=== PATIENT | male | born 1970 | race Caucasian/White ===

== ENCOUNTER 2016-06-12 08:46 | Emergency (ER) | payer BC ==
[~2016-06-12] VITALS: Ht 175.3 cm; Wt 105.8 kg
[~2016-06-12 08:46] MED LIST: CLR10 PO; EPP3/2 IM; OMEP40CA PO; SERT50TA PO; ZNTT/150 PO
[2016-06-12 08:50] VITALS: TEMP 36.6; Ht 175.3 cm; Wt 105.8 kg
--- NOTE | 2016-06-12 09:06 | EMERGENCY ROOM VISIT NOTE ---
History Report prepared by [place]: Fransisco Juan Under the Supervision of: Dr. Alfredo Morales M.D. First contact with patient: 08:58 Chief Complaint: HYPERTENSION Stated Complaint: BLURRY VISION, ELEVATED BP History of Present Illness The patient is a 46 year old male who presents to the Emergency Room with complaints of an episode of blurry vision that occurred around 0830 this morning. The patient says the blurry vision persisted for 15 minutes. 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 He says the blurriness was worse in his left eye than his right. He was concerned due to the persistence of his symptoms. The patient has been working since 0330 this morning, and he has not eaten since last night. He has been drinking appropriately. The patient denies any pain, headache, dizziness, loss of consciousness, weakness, numbness, tingling, or recent falls or trauma. He says he was just doing his normal routes this morning, with no unusual exposure. The patient drinks occasional alcohol, and does not use any drugs. He has had hematuria in the past, which he has followed up with his urologist about. The patient has been concerned about hypertension. He does see an eye doctor regularly. Source of History: patient Onset: Around 0830 this morning Position: eye Quality: other (blurry vision, left worse than right) Timing: other (episode) Associated Symptoms: No LOC, No headache, No numbness, No weakness Note: Associated symptoms: Denies any pain, dizziness, tingling. Review of Systems See HPI for pertinent positives & negatives. A total of 10 systems reviewed and were otherwise negative. Past Medical & Surgical Medical Problems: (1) Hematuria Surgical Problems: (1) H/O vasectomy Family History Cancer Heart disease Lung disease Social History Smoking Status: Never Smoker Alcohol Use: occasionally Drug Use: none Occupation Status: employed Current/Historical Medications Scheduled Omeprazole (Prilosec), 20 MG PO DAILY Sertraline (Zoloft), 50 MG PO DAILY Scheduled PRN Epinephrine (Epipen), 0.3 MG IM UD PRN for ALLERGIC REACTION Allergies Coded Allergies: Shellfish Allergy (Verified Allergy, Severe, ANAPHYLAXIS, 06/12/16) PT HAS EPI PEN Succinylcholine (Verified Allergy, Severe, MALIGNANT HYPERTHERMIA, 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 PT'S SISTER DOES HAVE MH. POLLEN (Verified Allergy, Unknown, SEASONAL ALLERGIES, 06/12/16) Physical Exam Vital Signs Date Time Temp Pulse Resp B/P Pulse Ox O2 Delivery O2 Flow Rate FiO2 06/12/16 11:17 81 18 137/89 96 06/12/16 10:48 95 Room Air 06/12/16 10:48 81 18 137/89 96 Room Air 06/12/16 08:50 36.6 88 18 135/95 97 Room Air Physical Exam GENERAL: Patient is a healthy-appearing well-nourished HEAD: Normocephalic atraumatic EYES: Ocular movements intact pupils equal and react to light OROPHARYNX mucous membranes are moist no exudates present no erythema or edema present NECK: Supple no nuchal rigidity CHEST: Good equal expansion LUNGS: Clear and equal to auscultation CARDIAC: Normal S1 and S2 ABDOMEN: Soft nontender no guarding BACK: No CVA tenderness EXTREMITIES: No pain upon palpation normal muscle strength in all groups no clubbing cyanosis or edema NEURO: Patient is following commands is answering questions appropriately. Alert and oriented x3 Cranial Nerves 2-12 grossly intact Medical Decision & Procedures ER Provider Diagnostic Interpretation: X-ray results as stated below per my interpretation and radiologist interpretation. Other radiology results as stated below per my review and radiologist interpretation: HEAD CT NONCONTRAST CT DOSE: 537.48 mGy.cm HISTORY: Blurry vision. Stroke TECHNIQUE: Multiaxial CT images of the head were performed without the use of intravenous contrast. Automated exposure control was utilized for this study. Comparison: None. Findings: Small amount secretions within the left maxillary sinus which is partially visualized. The remaining paranasal sinuses and left mastoid air cells are clear. A few partially opacified right inferior mastoid air cells. The calvarium and skull base are intact. The ventricles and sulci are within normal limits. There is no mass, hematoma, midline shift, or acute infarct. Impression: No acute intracranial abnormality. Electronically signed by: Howard Alcaraz M.D. 06/12/2016 9:58 AM Dictated Date/Time: 06/12/2016 9:43 AM CHEST ONE VIEW PORTABLE HISTORY: Blurred vision. Stroke COMPARISON: 11/29/2006. FINDINGS: Small amount of increased density within the right lung apex is likely due to the overlapping right anterior first rib. Otherwise, lungs are clear. No pleural effusions. No pneumothorax. The heart is normal in size. IMPRESSION: No acute process. Electronically signed by: Howard Alcaraz M.D. 06/12/2016 10:23 AM Dictated Date/Time: 06/12/2016 10:21 AM Laboratory Results 06/12/16 09:25 Red Blood Count 5.00, Mean Corpuscular Volume 91.4, Mean Corpuscular Hemoglobin 33.6, Mean Corpuscular Hemoglobin Concent 36.8, Mean Platelet Volume 9.6, Neutrophils (%) (Auto) 51.9, Lymphocytes (%) (Auto) 37.1, Monocytes (%) (Auto) 5.7, Eosinophils (%) (Auto) 4.9, Basophils (%) (Auto) 0.2, Neutrophils # (Auto) 3.37, Lymphocytes # (Auto) 2.41, Monocytes # (Auto) 0.37, Eosinophils # (Auto) 0.32, Basophils # (Auto) 0.01 06/12/16 09:25 Test 06/12/16 09:24 06/12/16 09:25 06/12/16 09:28 06/12/16 10:40 Bedside Glucose 88 mg/dl (70-99) White Blood Count 6.49 K/uL (4.8-10.8) Red Blood Count 5.00 M/uL (4.7-6.1) Hemoglobin 16.8 g/dL (14.0-18.0) Hematocrit 45.7 % (42-52) Mean Corpuscular Volume 91.4 fL (80-100) Mean Corpuscular Hemoglobin 33.6 pg (25-34) Mean Corpuscular Hemoglobin Concent 36.8 g/dl (32-36) Platelet Count 279 K/uL (130-400) Mean Platelet Volume 9.6 fL (7.4-10.4) Neutrophils (%) (Auto) 51.9 % Lymphocytes (%) (Auto) 37.1 % Monocytes (%) (Auto) 5.7 % Eosinophils (%) (Auto) 4.9 % Basophils (%) (Auto) 0.2 % Neutrophils # (Auto) 3.37 K/uL (1.4-6.5) Lymphocytes # (Auto) 2.41 K/uL (1.2-3.4) Monocytes # (Auto) 0.37 K/uL (0.11-0.59) Eosinophils # (Auto) 0.32 K/uL (0-0.5) Basophils # (Auto) 0.01 K/uL (0-0.2) RDW Standard Deviation 42.8 fL (36.4-46.3) RDW Coefficient of Variation 12.8 % (11.5-14.5) Immature Granulocyte % (Auto) 0.2 % Immature Granulocyte # (Auto) 0.01 K/uL (0.00-0.02) Prothrombin Time 10.7 SECONDS (9.0-12.0) Prothromb Time International Ratio 1.0 (0.9-1.1) Activated Partial Thromboplast Time 30.1 SECONDS (21.0-31.0) Partial Thromboplastin Ratio 1.2 Anion Gap 8.0 mmol/L (3-11) Est Creatinine Clear Calc Drug Dose 111.8 ml/min Estimated GFR () 104.9 Estimated GFR (Non- 90.5 BUN/Creatinine Ratio 13.8 (10-20) Calcium Level 9.1 mg/dl (8.5-10.1) Total Creatine Kinase 325 U/L (39-308) Creatine Kinase MB 3.0 ng/ml (0.5-3.6) Creatine Kinase MB Ratio 0.9 (0-3.0) Troponin I < 0.015 ng/ml (0-0.045) Bedside Prothrombin Time INR 1.0 (0.9-1.1) Urine Opiates Screen NEG (NEG) Urine Methadone, Qualitative NEG (NEG) Urine Barbiturates NEG (NEG) Urine Phencyclidine (PCP) Level NEG (NEG) Ur Amphetamine/Methamphetamine NEG (NEG) MDMA (Ecstasy) Screen NEG (NEG) Urine Benzodiazepines Screen NEG (NEG) Urine Cocaine Metabolite NEG (NEG) Urine Marijuana (THC) NEG (NEG) Labs reviewed by ED physician. Medications Administered Medications (Trade) Dose Ordered Sig/Kenny Route Start Time Stop Time Status Last Admin Dose Admin Aspirin (Aspirin Chew) 324 mg NOW STAT PO 06/12/16 10:31 06/12/16 10:32 DC 06/12/16 10:55 324 MG ECG Indication: other (blurry vision) Rate (beats per minute): 78 Rhythm: normal sinus Findings: no acute ischemic change, no ectopy ED Course 0915: Past medical records reviewed. The patient was evaluated in room A3. A complete history and physical examination was performed. 0917: Ordered NSS 1000 ml @ 50 mls/hr IV. 103: Ordered Aspirin Chew 324 mg PO. 1035: I reevaluated the patient and he is resting comfortably. The patient verbally expressed understanding and agreement of the treatment plan. The patient will be discharged. Medical Decision Differential diagnosis: Etiologies such as metabolic, infection, hypo/hyperglycemia, electrolyte abnormalities, cardiac sources, intracerebral event, toxicologic, neurologic, as well as others were entertained. This is a 46-year-old male who presents emergency Department with sudden onset of blurry vision in his left eye today. The situation resolved after proximally 2 minutes. The patient describes it as painless. He is slightly hypertensive. For this reason the decision was made to do his full stroke workup on the patient. He has a normal CAT scan ahead normal CBC normal renal profile normal liver profile. He was given 324 of aspirin in the emergency department. I did advise the patient to start 81 mg of aspirin at home pending follow-up with his primary care physician. Patient and family were in agreement with the treatment plan. Impression Primary Impression: Hypertension Scribe Attestation The scribe's documentation has been prepared under my direction and personally reviewed by me in its entirety. I confirm that the note above accurately reflects all work, treatment, procedures, and medical decision making performed by me. Departure Information Dispostion Home / Self-Care Referrals Mak Calvert M.D. ([facility]) (PCP) Forms HOME CARE DOCUMENTATION FORM, IMPORTANT VISIT INFORMATION, WORK / SCHOOL INSTRUCTIONS Patient Instructions [facility] Additional Instructions Need follow up with DR Calvert's office You have been examined and treated today on an emergency basis only. This is not a substitute for, or an effort to provide, complete comprehensive medical care. It is impossible to recognize and treat all injuries or illnesses in a single emergency department visit. It is therefore important that you follow up closely with Dr Calvert. Call as soon as possible for an appointment. Thank you for your time and consideration. I look forward to speaking with you again soon. Please don't hesitate to call us if you have any questions. Problem Qualifiers Primary Impression: Hypertension Hypertension type: essential hypertension Qualified Codes: I10 - Essential ( primary) hypertension
[2016-06-12] MEDS ORDERED: SODIUM CHLORIDE 0.9% 1000ML 1,000 ML IV SCH (09:17)
[2016-06-12] MEDS ORDERED: PRLSR20 PO (09:26)
[2016-06-12 09:54] LABS: BASO % 0.2 %; BASO ABS # 0.01 K/uL (0-0.2); COMPLETE YES; EOS % 4.9 %; HEMATOCRIT 45.7 % (42-52); IG% 0.2 %; LYMPH % 37.1 %; LYMPH ABS # 2.41 K/uL (1.2-3.4); MEAN CELL VOLUME 91.4 fL (80-100); MEAN CORPUSCULAR HEMOGLOBIN 33.6 pg (25-34); MEAN CORPUSCULAR HGB CONC 36.8 g/dl (32-36); MEAN PLATELET VOLUME 9.6 fL (7.4-10.4); MONO % 5.7 %; NEUT % 51.9 %; PLATELET COUNT 279 K/uL (130-400); WHITE BLOOD COUNT 6.49 K/uL (4.8-10.8)
[2016-06-12 10:00] LABS: BLOOD UREA NITROGEN 14 mg/dl (7-18); BUN/CREATININE RATIO 13.8 (10-20); CALCIUM 9.1 mg/dl (8.5-10.1); CARBON DIOXIDE 25 mmol/L (21-32); CHLORIDE 106 mmol/L (98-107); GLUCOSE 86 mg/dl (70-99); POTASSIUM 4.4 mmol/L (3.5-5.1); SODIUM 139 mmol/L (136-145)
--- NOTE | 2016-06-12 10:00 | DIAGNOSTIC IMAGING REPORT ---
HEAD CT NONCONTRAST CT DOSE: 537.48 mGy.cm HISTORY: Blurry vision. Stroke TECHNIQUE: Multiaxial CT images of the head were performed without the use of intravenous contrast. Automated exposure control was utilized for this study. Comparison: None. Findings: Small amount secretions within the left maxillary sinus which is partially visualized. The remaining paranasal sinuses and left mastoid air cells are clear. A few partially opacified right inferior mastoid air cells. The calvarium and skull base are intact. The ventricles and sulci are within normal limits. There is no mass, hematoma, midline shift, or acute infarct. Impression: No acute intracranial abnormality. Electronically signed by: Howard Alcaraz M.D. 06/12/2016 9:58 AM Dictated Date/Time: 06/12/2016 9:43 AM
[2016-06-12 10:04] LABS: PARTIAL THROMBOPLASTIN RATIO 1.2; PROTHROMBIN TIME (PATIENT) 10.7 SECONDS (9.0-12.0)
[2016-06-12 10:05] LABS: CKMB/CK RATIO 0.9 (0-3.0)
--- NOTE | 2016-06-12 10:25 | DIAGNOSTIC IMAGING REPORT ---
CHEST ONE VIEW PORTABLE HISTORY: Blurred vision. Stroke COMPARISON: 11/29/2006. FINDINGS: Small amount of increased density within the right lung apex is likely due to the overlapping right anterior first rib. Otherwise, lungs are clear. No pleural effusions. No pneumothorax. The heart is normal in size. IMPRESSION: No acute process. Electronically signed by: Howard Alcaraz M.D. 06/12/2016 10:23 AM Dictated Date/Time: 06/12/2016 10:21 AM
[2016-06-12] MEDS ORDERED: ASPIRIN 81 MG CHEW PO STA (10:31)
[2016-06-12 10:48] VITALS: O2SAT 95
[2016-06-12 11:17] VITALS: BP 137/89; PULSE 81; O2SAT 96
[2016-06-12 11:19] LABS: BENZODIAZEPINE, URINE NEG (NEG); COCAINE,URINE NEG (NEG); PHENCYCLIDINE, URINE NEG (NEG)
== END 2016-06-12 11:18 | disposition home or self-care (01) ==
LOC: C.EDB 08:47 → C.EDA 11:18
DX: I10 Essential (primary) hypertension (principal); Z79.899 Other long term (current) drug therapy